=== PATIENT | male | born 2000 | race Caucasian/White ===

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

== ENCOUNTER 2020-11-25 10:08 | Emergency (ER) | payer OTHER, SELFPAY ==
[2020-11-25 10:16] VITALS: BP 109/73; PULSE 72; RESP 16; TEMP 36.8; O2SAT 100
[2020-11-25 10:18] VITALS: BP 109/73; PULSE 72; RESP 16; TEMP 36.8; O2SAT 100
--- NOTE | 2020-11-25 10:23 | ED.GENADULT ---
HPI - General Adult General Chief complaint: Unspecified Stated complaint: SORE THROAT/RUNNY NOSE/HEADACHE Time Seen by Provider: 11/25/20 10:23 Source: patient and RN notes reviewed Mode of arrival: ambulatory Limitations: no limitations History of Present Illness HPI narrative: 20-year-old male presents to the [facility] with complaints of a sore throat, runny nose and headache from the through 16 November. After that he was having some anxiety and depression issues. Denies any suicidal or homicidal thoughts. States that he has a history of anxiety and depression. Currently looking for primary care provider for treatment. States today that he is feeling much better. Is looking for a work note so he can go back to work. Denies any abdominal pain or chest pain. No cold symptoms since 16 November. Related Data Home Medications Medication Instructions Recorded Confirmed No Home Medications 06/25/19 06/25/19 Allergies Allergy/AdvReac Type Severity Reaction Status Date / Time No Known Allergies Allergy Mild Verified 12/29/09 14:07 Review of Systems Review of Systems: All systems reviewed & are unremarkable except as noted in HPI and below Constitutional: Constitutional: Reports as per HPI and Reports headache(s) Eyes: Eyes: Reports no additional eye complaints ENT: Reports as per HPI, Reports nasal congestion, Reports nasal discharge and Reports sore throat Cardiovascular: Cardiovascular: Reports no additional cardiovascular complaints Respiratory: Respiratory: Reports no additional respiratory complaints, Denies cough and Denies dyspnea Gastrointestinal: Gastrointestinal: Reports no additional gastrointestinal complaints and Denies abdominal pain Musculoskeletal: Musculoskeletal: Reports as per HPI and Reports myalgias Integumentary/Breasts: Skin/Breast: Reports system reviewed and no additional complaints, except as docu Neurologic: Reports system reviewed and no additional complaints, except as documented Psychiatric: Psychiatric: Reports no additional psychiatric complaints Allergic/Immunologic: Allergic/Immunologic: Reports no additional allergic/immunologic complaints [facility], [facility] Past Medical History Medical History (Updated 11/25/20 @ 10:32 by Liss Knight) No significant medical problems Surgical History Surgical History (Updated 11/25/20 @ 13:08 by Liss Knight) History of appendectomy 2005 History of tonsillectomy 2007 No significant past surgical history Comments At the time of my signature, I reviewed and agree with the nursing past medical, surgical, social, and family history. There is no relevant family history pertinent to the patient complaint. Exam Const: General: cooperative, healthy appearing, no acute distress, well developed and alert Nutritional Appearance: average body habitus Orientation/consciousness: patient oriented x3 Limitations: no limitations HENMT: Head: normal to inspection and normocephalic Ears: hearing grossly normal bilaterally, external ears normal, TM's normal bilaterally, EAC's normal, mastoids normal and TM abnormal with fluid behind the TM bilateral; not erythematous General nose exam: Normal external nose present and Normal nasal mucous membranes and turbinates present Face and sinus: normal facial exam and face symmetric Mouth: Yes Normal oral and palatal mucosa present, Yes lip normal and Yes moist mucous membranes Throat: uvula midline, postnasal drainage and tonsils absent Eyes: General: appearance normal, both eyes and all related structures Alignment and Position: alignment normal Neck: Neck: normal visual inspection, full ROM, no lymphadenopathy and no meningeal signs Chest: Chest palpation & inspection: normal inspection of the chest Resp: Effort & Inspection: normal respiratory effort Auscultation: clear to auscultation bilaterally Cardio: Rate: regular rate Rhythm: regular rhythm Back/Spine/Pelvis: Back: no CVA tenderness Skin:
[2020-11-26 17:13] LABS: SARS-CoV-2 RNA PCR Negative
== END 2020-11-25 10:39 | disposition home or self-care (01) ==
PROVIDERS: Emergency Provider Nurse Practitioner
DX: H65.03 Acute serous otitis media, bilateral (principal); Z20.822 Contact with and (suspected) exposure to COVID-19
CPT/HCPCS: 99213; C9803; G0463; U0003; U0005

== ENCOUNTER 2021-01-28 12:13 | Outpatient (CLI) | payer OTHER, SELFPAY ==
[2021-01-28 12:28] LABS: Basophils Absolute Auto 0.1 K/mm3 (0.0-0.1); Basophils Percent Auto 1.5 % (0.2-1.2); Eosinophils Absolute Auto 0.3 K/mm3 (0-0.3); Eosinophils Percent Auto 4.4 % (0-4.4); Hematocrit 48.5 % (42.0-52.0); Hemoglobin 16.6 g/dL (14.0-18.0); Immature Granulocyte Absolute 0.02 K/mm3 (0.00-0.031); Immature Granulocyte Percent A 0.3 % (0-0.5); Lymphocytes Absolute Auto 1.69 K/mm3 (0.9-3.2); Lymphocytes Percent Auto 28.8 % (18.3-44.2); Mean Corpuscular HGB Conc 34.2 g/dl (32-36); Mean Corpuscular Hemoglobin 31.1 pg (26-34); Mean Platelet Volume 10.1 fl (7.4-10.4); Monocytes Absolute Auto 0.5 K/mm3 (0.1-0.6); Monocytes Percent Auto 7.8 % (2.6-8.5); Neutrophils Absolute Auto 3.4 K/mm3 (1.3-6.7); Neutrophils Percent Auto 57.2 % (45.5-73.1); Platelet Count Result 258 k/mm3 (150-375); Red Blood Count 5.33 M/mm3 (4.6-6.20); White Blood Count 5.9 K/mm3 (4.5-10.0)
[2021-01-28 12:37] LABS: Alanine Aminotransferase 18 U/L (4-50); Albumin Level 4.8 g/dL (3.5-5.1); Alkaline Phosphatase 69 U/L (38-126); Anion Gap 11 mmol/L (8-16); Aspartate Amino Transferase 21 U/L (17-59); Bilirubin,Total 0.5 mg/dL (0.2-1.3); Blood Urea Nitrogen 5 mg/dL (9-20); Calcium 9.5 mg/dL (8.4-10.2); Carbon Dioxide 25 mmol/L (22-30); Chloride 108 mmol/L (98-107); Cholesterol 118 mg/dL (0-200); Estimated Glomerular Filt Rate > 60; Glucose 81 mg/dL (65-110); HDL Direct 51 mg/dL; Potassium 3.7 mmol/L (3.4-5.0); Sodium 144 mmol/L (137-145); Triglycerides 36 mg/dL (<150)
[2021-01-28 12:48] LABS: LDL Cholesterol Direct 56 mg/dL
== END 2021-01-28 12:14 | disposition home or self-care (01) ==
LOC: ANHLAB 12:15
PROVIDERS: PCP Internal Medicine; Visit Provider Clinical Nurse Specialist
DX: Z13.228 Encounter for screening for other metabolic disorders (principal); Z13.220 Encounter for screening for lipoid disorders; F41.9 Anxiety disorder, unspecified
CPT/HCPCS: 36415; 80053; 80061; 84443; 85025

== ENCOUNTER 2022-01-21 11:34 | Emergency (ER) | payer OTHER, SELFPAY ==
--- NOTE | 2022-01-21 11:36 | ED.URI ---
HPI - URI/Sore Throat General Chief Complaint: Upper Respiratory Infection Stated Complaint: SORE THROAT/HEADACHE Time Seen by Provider: 01/21/22 11:36 Source: patient Mode of arrival: ambulatory Limitations: no limitations History of Present Illness HPI Narrative: Mr. Reddy is a 21-year-old male patient presenting to the clinic today with complaints of fever, headache, body aches, and sore throat since Monday or Monday. He reports that his sister has tested positive for influenza A. History of tonsillectomy. He denies any known exposure to anyone with COVID or strep MD elicited complaint: sore throat, nasal congestion and other (Headache) Related Data Home Medications Medication Instructions Recorded Confirmed sertraline 100 mg tablet 100 mg PO DAILY 01/21/22 01/21/22 Allergies Allergy/AdvReac Type Severity Reaction Status Date / Time No Known Allergies Allergy Mild Verified 01/21/22 11:52 Review of Systems Review of Systems: Pertinent positives per HPI. Patient denies any rash, visual changes, dizziness, cough, shortness of breath, chest pain, palpitations, nausea, vomiting, diarrhea, constipation, abdominal pain, or any urinary issues. [facility] Past Medical History Medical History Anxiety No significant medical problems Surgical History Surgical History H/O tooth extraction History of appendectomy 2005 History of tonsillectomy 2007 No significant past surgical history Social History Social History Smoking status: Never smoker Alcohol intake: never Gender identity (if verbalized by the patient): Male Comments At the time of my signature, I reviewed and agree with the nursing past medical, surgical, social, and family history. There is no relevant family history pertinent to the patient complaint. Exam Narrative: General: Well-developed, well nourished, in no apparent distress Head: Normocephalic, atraumatic Eyes: Pupils equally round and reactive to light bilaterally, EOM intact, sclera and conjunctive clear, no discharge, lids normal Ears: TMs intact and clear, ear canals clear, no drainage, grossly hearing normal. Nose: Nares patent, clear nasal discharge, no inflammation, no sinus tenderness. Mouth: Oral pharynx without lesions or masses, good dentition, MMM. Postnasal drip, tonsils surgically absent Neck: Supple, trachea midline, no enlargement of anterior or posterior cervical nodes, no thyroid masses or goiter palpable. Cardio: Regular rate and rhythm, s1 and s2 normal, no murmur appreciated. Resp: Clear to auscultation bilaterally, no rhonchi, rales, wheezing or rubs Course Course Emergency Course: Portions of this record may have been created with voice recognition software. Level of Care: Express Care Visit Vital Signs Vital signs: Vital Signs Oxygen Delivery Room Air 01/21/22 11:53 Oxygen Delivery Room Air 01/21/22 11:53 Vital signs reviewed MDM - URI/Sore Throat MDM Narrative Medical decision making narrative: At the time of visit patient is resting comfortably on the exam table. Influenza and COVID testing completed in the clinic today. COVID testing is negative however patient is positive for influenza A. We will send in prescription for Tamiflu for the patient. Supportive measures were discussed with the patient he voiced understanding of discharge instructions and agrees to treatment plan. Differential Diagnosis Differential diagnosis: Likely upper respiratory infection, otitis media, sinusitis, viral infection, bronchitis, influenza, pharyngitis and other (COVID) Lab Data Labs: Lab Results 01/21/22 Range/Units 11:50 POC SARS CoV-2 Ag Negative (Negative) Influenza A Screen Positive
== END 2022-01-21 12:12 | disposition home or self-care (01) ==
PROVIDERS: Emergency Provider Nurse Practitioner Family
DX: J10.1 Influenza due to other identified influenza virus with other respiratory manifestations (principal); Z20.822 Contact with and (suspected) exposure to COVID-19
CPT/HCPCS: 87426; 87804; 99213; C9803; G0463

== ENCOUNTER 2023-03-29 10:31 | Emergency (ER) | payer OTHER, SELFPAY ==
[2023-03-29 10:54] VITALS: BP 112/72; PULSE 82; RESP 16; TEMP 37.6; O2SAT 100
--- NOTE | 2023-03-29 11:22 | ED.URI ---
HPI - URI/Sore Throat General Chief Complaint: Upper Respiratory Infection Stated Complaint: BACK PAIN/EAR PRESSURE/COUGH/HEADACHE Time Seen by Provider: 03/29/23 11:22 Source: patient Mode of arrival: ambulatory Limitations: no limitations History of Present Illness HPI Narrative: 23-year-old male presents with complaint of body aches, bilateral ear pressure, nasal congestion, cough and headache for 2 days. Afebrile. Patient concern for COVID due to recent recent exposure at work place. All systems reviewed and negative except as noted above. Related Data Home Medications Medication Instructions Recorded Confirmed sertraline 100 mg tablet 100 mg PO DAILY 01/21/22 03/29/23 Allergies Allergy/AdvReac Type Severity Reaction Status Date / Time No Known Allergies Allergy Mild Verified 03/29/23 11:09 Review of Systems Review of Systems: CONSTITUTIONAL: Denies fever, chills, or sweats. reports fatigue EYES: Denies visual changes, redness, or discharge. ENT: Reports rhinorrhea, congestion, sore throat, bilateral otalgia. CARDIOVASCULAR: Denies chest pain, palpitations, or edema. RESPIRATORY: Reports cough. Denies dyspnea. GASTROINTESTINAL: Denies abdominal pain, nausea, vomiting, or diarrhea. GENITOURINARY: Denies dysuria or hematuria. SKIN: Denies rash or itching. MUSCULOSKELETAL: Denies back pain, joint pain, or myalgia. NEUROLOGIC: Denies headache, numbness, or weakness. PSYCHIATRIC: Denies anxiety or depression. All other systems reviewed are negative, except as documented in HPI. [facility] Past Medical History Medical History Anxiety No significant medical problems Surgical History Surgical History H/O tooth extraction History of appendectomy 2006 History of tonsillectomy 2007 No significant past surgical history Social History Social History Smoking status: Never smoker Alcohol intake: never Living arrangements: alone Gender identity (if verbalized by the patient): Male Comments At time of signature, agree with nursing past medical, surgical, social and family history. There is no relevant family history pertinent to the presenting complaint. Exam Narrative: GENERAL: This is a well-nourished, well-developed patient, in no apparent distress. HEAD: normocephalic, atraumatic. EYES: PERRL. Sclera clear/white. Vision is grossly intact. EARS: External ears normal, auditory canals clear and without drainage, Fluid bilateral TMs without erythema or perforation. Hearing grossly intact. NOSE: External nose normal with moderate congestion, clear nasal drainage. THROAT: Mucous membranes moist, Erythema postnasal drainage NECK: Neck supple, non-tender without lymphadenopathy, masses or thyromegaly. CARDIOVASCULAR: Regular rate and rhythm without murmurs, gallops, or rubs. RESPIRATORY: Clear to auscultation. Breath sounds equal bilaterally. No wheezes, rales, or rhonchi. SKIN: warm, Dry, intact with no suspicious lesions or rash, good texture and turgor. NEURO: awake, alert, and oriented to person, place and time. There were no obvious focal neurologic abnormalities. EXTREMITIES: No joint tenderness, effusion, or edema noted. Course Course Level of Care: Express Care Visit Vital Signs Vital signs: Vital Signs Temperature 37.6 C H 03/29/23 10:54 Pulse Rate 82 03/29/23 10:54 Respiratory Rate 16 03/29/23 10:54 Blood Pressure 112/72 03/29/23 10:54 Pulse Oximetry 100 03/29/23 10:54 Temperature 37.6 C H 03/29/23 10:54 Pulse Rate 82 03/29/23 10:54 Respiratory Rate 16 03/29/23 10:54 Blood Pressure 112/72 03/29/23 10:54 Pulse Oximetry 100 03/29/23 10:54 reviewed MDM - URI/Sore Throat MDM Narrative Medical decision making narrative: Patient is aware of diagnos
== END 2023-03-29 11:31 | disposition home or self-care (01) ==
PROVIDERS: Emergency Provider Nurse Practitioner Family
DX: U07.1 COVID-19 (principal); F41.9 Anxiety disorder, unspecified
CPT/HCPCS: 87426; 87804; 99213; C9803; G0463

== ENCOUNTER 2023-09-06 17:06 | Emergency (ER) | payer OTHER, SELFPAY ==
[2023-09-06 17:14] VITALS: BP 123/75; PULSE 75; RESP 16; TEMP 36.4; O2SAT 99
--- NOTE | 2023-09-06 17:27 | ED.MALEGU ---
HPI - Male Genitourinary General Chief complaint: Urogenital-Male Stated complaint: POSSIBLE STD EXPOSURE Time Seen by Provider: 09/06/23 17:23 Source: patient and RN notes reviewed Mode of arrival: ambulatory Limitations: no limitations History of Present Illness HPI Narrative: 23-year-old male presents with concern for exposure to chlamydia. Reports and exposure 3 days ago. He denies any symptoms. MD Complaint: possible STD exposure Related Data Home Medications Medication Instructions Recorded Confirmed sertraline 100 mg tablet 100 mg PO DAILY 01/21/22 09/06/23 Allergies Allergy/AdvReac Type Severity Reaction Status Date / Time No Known Allergies Allergy Mild Verified 09/06/23 17:30 Review of Systems Review of Systems: CONSTITUTIONAL: Denies malaise, chills, sweats, or fever. CARDIOVASCULAR: Denies chest pain, palpitations, or edema. RESPIRATORY: Denies cough or dyspnea. GASTROINTESTINAL: Denies abdominal pain, nausea, vomiting, diarrhea GENITOURINARY: Denies dysuria, frequency, urgency, suprapubic pressure, discharge SKIN: Denies rash or itching. MUSCULOSKELETAL: Denies back pain or myalgia. All systems reviewed & are unremarkable except as noted in HPI and below PMFSH Past Medical History Medical History Anxiety No significant medical problems Surgical History Surgical History H/O tooth extraction History of appendectomy 2006 History of tonsillectomy 2007 No significant past surgical history Social History Social History Smoking status: Never smoker Alcohol intake: never Living arrangements: alone Gender identity (if verbalized by the patient): Male Comments At time of signature, agree with nursing past medical, surgical, social and family history. There is no relevant family history pertinent to the presenting complaint Exam Narrative: GENERAL: Well-appearing, well-nourished, and in no acute distress. HEAD: Normocephalic. EYES: PERRLA, conjunctivae clear. NECK: Supple. No lymphadenopathy CHEST: Clear to auscultation. No respiratory distress. HEART: Regular rate and rhythm. SKIN: Warm, dry, no rash. NEURO: Alert and oriented x3. PSYCH: Normal mood and affect Course Course Emergency Course: Patient is aware of diagnosis, understands and agrees to treatment plan. Anticipatory guidance given. Patient agrees to follow-up as directed and is aware of reasons to seek care at the emergency department. Portions of this record may have been created with voice recognition software Level of Care: Express Care Visit Vital Signs Vital signs: Vital Signs Temperature 97.6 F 09/06/23 17:14 Pulse Rate 75 09/06/23 17:14 Respiratory Rate 16 09/06/23 17:14 Blood Pressure 123/75 09/06/23 17:14 Pulse Oximetry 99 09/06/23 17:14 Temperature 97.6 F 09/06/23 17:14 Pulse Rate 75 09/06/23 17:14 Respiratory Rate 16 09/06/23 17:14 Blood Pressure 123/75 09/06/23 17:14 Pulse Oximetry 99 09/06/23 17:14 Reviewed. Critical Care Time Critical Care Time Critical Care Time: No Discharge Plan Discharge Clinical Impression: Possible exposure to STD Patient Disposition: Home, Self-Care Condition: Stable Instructions: Antibiotic Form, Safe Sex Practices (ED) Additional Instructions: You have been tested for potential gonorrhea, chlamydia, and trichomoniasis today. You have received antibiotics to treat gonorrhea today, a prescription has been called into your pharmacy to treat chlamydia. You will receive a phone call in 2-3 days with the results of today's testing. If you are positive for gonorrhea or trich you will return need another antibiotic and that will be prescribed at that time, you may have to return for an injection. It is very important that you a
[2023-09-06 21:02] LABS: Trichomonas Vag PCR NOT DETECTED (NOT DETECTE)
[2023-09-06 21:26] LABS: Chlamydia trachomatis NOT DETECTED (NOT DETECTE); Neisseria gonorrhoeae PCR NOT DETECTED (NOT DETECTE)
== END 2023-09-06 17:37 | disposition home or self-care (01) ==
PROVIDERS: Emergency Provider Nurse Practitioner
DX: Z11.3 Encounter for screening for infections with a predominantly sexual mode of transmission (principal); F41.9 Anxiety disorder, unspecified
CPT/HCPCS: 87491; 87591; 87661; 99213; G0463